=== PATIENT | female | born 1970 | race Caucasian/White ===

== ENCOUNTER 2024-01-23 07:48 | Outpatient (CLI) | payer OTHER, SELFPAY | END 2024-01-23 07:49 | disposition home or self-care (01) | PROVIDERS: PCP Physician Assistant Medical; Visit Provider Physician Assistant Medical | DX: Z13.228 Encounter for screening for other metabolic disorders (principal); Z13.220 Encounter for screening for lipoid disorders; Z13.29 Encounter for screening for other suspected endocrine disorder | CPT/HCPCS: 80053; 80061; 84443 ==

== ENCOUNTER 2024-11-17 13:05 | Outpatient (CLI) | payer OTHER, SELFPAY | END 2024-11-17 13:06 | disposition home or self-care (01) | LOC: NFLDREF 11-22 10:21 | PROVIDERS: PCP Physician Assistant Medical; Referring Provider Physician Assistant Medical; Visit Provider Physician Assistant Medical | DX: N95.1 Menopausal and female climacteric states (principal) | CPT/HCPCS: 83001 ==

== ENCOUNTER 2024-11-19 08:58 | Outpatient (CLI) | payer OTHER, SELFPAY ==
--- NOTE | 2024-11-19 09:15 | CRLHL7_ITS ---
For Patients: As a result of the Century Cures Act, medical imaging exams and procedure reports are released immediately into your electronic medical record. You may view this report before your referring provider. If you have questions, please contact your health care provider. INDICATION: BILATERAL SCREENING MAMMOGRAM, ASYMPTOMATIC 53 Y/O FEMALE COMPARISON: 10/28/23, 07/23/22, 02/10/21 TECHNIQUE: CC and MLO views were obtained. These mammographic images have been obtained using full-field digital technique. These mammographic images were interpreted with the benefit of computer aided detection and tomosynthesis. BREAST COMPOSITION: The breasts are heterogeneously dense, which may obscure small masses. FINDINGS: No suspicious findings. ASSESSMENT: BI-RADS 1 Negative RECOMMENDATION: Annual screening mammogram. A lay language report of this examination will be provided to the patient. Dictated by: Alex Hair MD @ 11/19/2024 12:17:39 (Electronically Signed)
== END 2024-11-19 08:59 | disposition home or self-care (01) ==
LOC: MAMMO 08:59
PROVIDERS: PCP Physician Assistant Medical; Visit Provider Physician Assistant Medical
DX: Z12.31 Encounter for screening mammogram for malignant neoplasm of breast (principal); R92.333 Mammographic heterogeneous density, bilateral breasts
CPT/HCPCS: 77063; 77067

== ENCOUNTER 2024-11-26 11:00 | Outpatient (CLI) | payer OTHER, SELFPAY | END 2024-11-26 11:01 | disposition home or self-care (01) | LOC: NFLDREF 11-29 18:52 | PROVIDERS: PCP Physician Assistant Medical; Referring Provider Physician Assistant Medical; Visit Provider Physician Assistant Medical | DX: E05.90 Thyrotoxicosis, unspecified without thyrotoxic crisis or storm (principal); R00.1 Bradycardia, unspecified; N95.9 Unspecified menopausal and perimenopausal disorder; G89.29 Other chronic pain; E66.9 Obesity, unspecified; Z13.6 Encounter for screening for cardiovascular disorders | CPT/HCPCS: 80053; 80061; 84443 ==

== ENCOUNTER 2025-06-02 11:10 | Outpatient (CLI) | payer OTHER, SELFPAY ==
[2025-06-02 11:34] VITALS: BP 116/73; PULSE 78; RESP 16; TEMP 36.9; O2SAT 99; BMI 35.5
--- NOTE | 2025-06-02 12:45 | P.ANES_ITS ---
Anesthesia Charges Start Date/Time Anesthesia Start Date: 06/02/25 Anesthesia Start Time: 12:20 Stop Date/Time Anesthesia Stop Date: 06/02/25 Anesthesia Stop Time: 12:43 Coding CPT Codes CPT Codes: ANESTH BONE ASPIRATE/BX - 29667 ([id number]) P2 - PATIENT W/MILD SYST DISEASE, QK - MULTIPLE KNIFE EDGE TRIMMER OPERATOR 2-4 CNCRNT ANES PROC, QX - TESTER ROCKET ENGINE SVC W/ MD MED DIRECTION
--- NOTE | 2025-06-02 12:45 | W.ANESCHARGE ---
Anesthesia Charges Start Date/Time Anesthesia Start Date: 06/02/25 Anesthesia Start Time: 12:20 Stop Date/Time Anesthesia Stop Date: 06/02/25 Anesthesia Stop Time: 12:43 Coding CPT Codes CPT Codes: ANESTH BONE ASPIRATE/BX - 24001 ([id number]) P2 - PATIENT W/MILD SYST DISEASE, QK - LEAD DATA ENTRY OPERATOR 2-4 CNCRNT ANES PROC, QX - COURT CRIER SVC W/ MD MED DIRECTION
[2025-06-02 12:46] VITALS: BP 111/66; PULSE 86; RESP 16; O2SAT 95
[2025-06-02 12:50] VITALS: BP 102/60; PULSE 71; RESP 16; O2SAT 96
[2025-06-02 13:00] VITALS: BP 101/64; PULSE 69; RESP 16; O2SAT 98
[2025-06-02 13:02] LABS: Hematocrit* 37.4 % (33.0-51.0); Hemoglobin* 12.3 gm/dL (12.0-16.0); Immature Granulocytes Abs Auto 0.00 K/uL (0.00-0.30); Immature Granulocytes Pct Auto 0.0 %; Immature Reticulocyte Fraction 12.9 % (3.0-15.9); Lymphocytes Absolute Auto 1.60 K/uL (0.90-2.90); Mean Corpuscular HGB Conc 33 gm/dL (32-36); Mean Corpuscular Hemoglobin 29 pg (26-34); Mean Corpuscular Volume 87 fL (80-100); RDW Coefficient of Variation % 15.4 % (11.5-15.5); Red Blood Count* 4.28 m/uL (4.00-5.20); Reticulocyte Hemoglobin Equivi 30.2 pg (29.0-35.0); Reticulocytes Absolute 0.05 # (0.03-0.08); White Blood Count* 6.80 K/uL (4.50-11.00)
[2025-06-02 13:08] LABS: Slide Review Reflex No
[2025-06-02 13:19] VITALS: BP 104/65; PULSE 75; RESP 16; O2SAT 97
--- NOTE | 2025-06-02 14:55 | P.ANES_ITS ---
Anesthesia Charges Start Date/Time Anesthesia Start Date: 06/02/25 Anesthesia Start Time: 12:20 Stop Date/Time Anesthesia Stop Date: 06/02/25 Anesthesia Stop Time: 12:43 Coding CPT Codes CPT Codes: ANESTH BONE ASPIRATE/BX - 69669 ([id number]) QK - RETAIL GENERAL MANAGER 2-4 CNCRNT ANES PROC, QX - ASSIGNMENT OFFICER SVC W/ MD MED DIRECTION, P2 - PATIENT W/MILD SYST DISEASE
--- NOTE | 2025-06-02 14:55 | W.ANESCHARGE ---
Anesthesia Charges Start Date/Time Anesthesia Start Date: 06/02/25 Anesthesia Start Time: 12:20 Stop Date/Time Anesthesia Stop Date: 06/02/25 Anesthesia Stop Time: 12:43 Coding CPT Codes CPT Codes: ANESTH BONE ASPIRATE/BX - 79317 ([id number]) QK - GUT CARRIER 2-4 CNCRNT ANES PROC, QX - HEALTH ASSOCIATE SVC W/ MD MED DIRECTION, P2 - PATIENT W/MILD SYST DISEASE
== END 2025-06-02 13:25 | disposition home or self-care (01) ==
LOC: OP CLINIC 11:11
PROVIDERS: PCP Physician Assistant Medical; Visit Provider Internal Medicine Hematology & Oncology
DX: D75.839 Thrombocytosis, unspecified (principal); C94.6 Myelodysplastic disease, not elsewhere classified
CPT/HCPCS: 01112; 36415; 85025; 85045; J1644; J2003; J2704

== ENCOUNTER 2025-07-20 08:04 | Outpatient (CLI) | payer OTHER, SELFPAY ==
--- NOTE | 2025-07-20 09:22 | P.ANES_ITS ---
Anesthesia Charges Start Date/Time Anesthesia Start Date: 07/20/25 Anesthesia Start Time: 08:40 Stop Date/Time Anesthesia Stop Date: 07/20/25 Anesthesia Stop Time: 09:21 Coding CPT Codes CPT Codes: NORIS LWR INTST NDSC NOS - 23378 ([id number]) P2 - PATIENT W/MILD SYST DISEASE, QK - MARKETING COMMUNICATIONS ASSOCIATE 2-4 CNCRNT ANES PROC, QX - BILLING ADMINISTRATOR SVC W/ MD MED DIRECTION
--- NOTE | 2025-07-20 09:22 | W.ANESCHARGE ---
Anesthesia Charges Start Date/Time Anesthesia Start Date: 07/20/25 Anesthesia Start Time: 08:40 Stop Date/Time Anesthesia Stop Date: 07/20/25 Anesthesia Stop Time: 09:21 Coding CPT Codes CPT Codes: NORIS LWR INTST NDSC NOS - 73768 ([id number]) P2 - PATIENT W/MILD SYST DISEASE, QK - POT ROOM TAPPER 2-4 CNCRNT ANES PROC, QX - FINAL ASSEMBLY INSPECTOR SVC W/ MD MED DIRECTION
--- NOTE | 2025-07-20 09:51 | P.ANES_ITS ---
Anesthesia Charges Start Date/Time Anesthesia Start Date: 07/20/25 Anesthesia Start Time: 08:40 Stop Date/Time Anesthesia Stop Date: 07/20/25 Anesthesia Stop Time: 09:21 Coding CPT Codes CPT Codes: NORIS LWR INTST NDSC NOS - 36028 ([id number]) P2 - PATIENT W/MILD SYST DISEASE, QK - IT INFRASTRUCTURE ARCHITECT 2-4 CNCRNT ANES PROC, QX - CREDIT PORTFOLIO ADVISOR SVC W/ MD MED DIRECTION
--- NOTE | 2025-07-20 09:51 | W.ANESCHARGE ---
Anesthesia Charges Start Date/Time Anesthesia Start Date: 07/20/25 Anesthesia Start Time: 08:40 Stop Date/Time Anesthesia Stop Date: 07/20/25 Anesthesia Stop Time: 09:21 Coding CPT Codes CPT Codes: NORIS LWR INTST NDSC NOS - 41314 ([id number]) P2 - PATIENT W/MILD SYST DISEASE, QK - FIRER BOILER 2-4 CNCRNT ANES PROC, QX - TOOL DISPATCHER SVC W/ MD MED DIRECTION
== END 2025-07-20 08:05 | disposition home or self-care (01) ==
LOC: OP CLINIC 08:04
PROVIDERS: PCP Physician Assistant Medical; Visit Provider Surgery
DX: Z12.11 Encounter for screening for malignant neoplasm of colon (principal); D12.8 Benign neoplasm of rectum; Z83.719 Family history of colon polyps, unspecified
CPT/HCPCS: 00811; 00812; 45385; J2704